=== PATIENT | female | born 1960 | race Caucasian/White ===

== ENCOUNTER 2017-06-10 06:52 | Day surgery (SDC) | payer MEDICARE, OTHER ==
[~2017-06-10] VITALS: Ht 149.9 cm; Wt 79.8 kg
[~2017-06-10 06:52] MED LIST: ASPIRIN EC81 MG PO; CONTOUR NEXT1 EACH MISC; CYCLOBENZAPRINE10 MG PO; DULOXETINE HCL20 MG PO; GABAPENTIN300 MG PO; LANTUS SOL100 UNIT/1 SUB-Q; METFORMIN HCL500 MG PO; NORCO 7.5-3251 EACH PO; OMEPRAZOLE20 MG PO; PROAIR HFA8.5 GM INH
--- NOTE | 2017-06-10 07:34 | NUR ---
PATIENT IS INCONTINENT OF LIQUID STOOL IN BED. LINEN AND GOWN CHANGED. CALL LIGHT W/IN REACH.
--- NOTE | 2017-06-10 09:04 | NUR ---
06/10/17 0904 Bushra Canela 0900 PATIENT ARRIVES TO PACU SLEEPING, AWAKENS WITH REPEATED STIMULI, THEN BACK TO SLEEP. RESP EVEN AND UNLABORED, NC AT 3 LITERS.
--- NOTE | 2017-06-10 10:38 | NUR ---
1005: PATIENT BACK IN DAY SURGERY ROOM FROM PACU. PATIENT DROWSY. AWAKENS TO VOICE, BUT FALLS RIGHT BACK TO SLEEP. VS CHECKED. IV SITE WNL. ICE WATER PLACED AT BEDSIDE. CALL LIGHT WITHIN REACH.
--- NOTE | 2017-06-10 12:18 | NUR ---
SOUP AND SANDWICH ORDERED FROM DIETARY. CALL LIGHT REMAINS W/IN REACH. PT REPORTS BEING COLD. ROSE MARY HARPER ON WARM.
--- NOTE | 2017-06-10 13:04 | NUR ---
1300 CBG 103 WHILE EATING SANDWICH, MEDICAL TRANSPORT CONTACTED PER PT REQUEST.
--- NOTE | 2017-06-10 13:08 | NUR ---
LE 1230: SOUP AND SANDWICH ARRIVED. PT SITTING UP EATING AND DENIES ADD'L NEEDS.
--- NOTE | 2017-06-10 13:25 | NUR ---
I KNOCKED ON PT'S DOOR, LOOKED IN AND I COULD TELL SHE SEEMED IN SOME DISCOMFORT. I ASKED HER IF SHE NEEDED HELP, SHE STATED "I NEED A NURSE. I HAVE TO GO TO THE BATHROOM." SHE LOOKED IN PAIN, I ARRANGED FOR JHONY Hinds TO CARE FOR HER. WILL FOLLOW NEEDED
--- NOTE | 2017-06-10 13:52 | NUR ---
LE 1320: DC INSTRUCTIONS GIVEN AND PATIENT VERBALIZES UNDERSTANDING. PT FINISHES THE SOUP AND SANDWICH AND TOLERATES THAT WELL. PT DRESSES SELF AND TRANSFERS HERSELF TO AND MEDICAL TRANSPORT VEHICLE WELL.
--- NOTE | 2017-06-12 10:17 | OR ---
[facility] [address], [place] [address] Signed DATE OF OPERATION: 06/10/2017 SURGEON: Vivek Fritz MD PREOPERATIVE DIAGNOSES: 1. Personal history of colonic polyps. 2. Diverticulosis. 3. Mother with a history of colon cancer at age 70. 4. Alternating constipation and diarrhea. POSTOPERATIVE DIAGNOSES: 1. Minimal to moderate sigmoid diverticulosis. 2. A 10 mm periappendiceal/cecal polyp. 3. A 5 mm polyp at 55 cm. 4. Minimal to moderate internal hemorrhoids. PROCEDURE: Colonoscopy with snare and hot biopsy. ESTIMATED BLOOD LOSS: None. INDICATIONS: James is a 56-year-old, obese, diabetic female, who underwent her upper and lower endoscopy more than 15 years ago. She had colonic polyps removed and was told she had diverticulosis. They had asked her to follow up every 5 years. However, she fell on hard times and was not able to make those arrangements. These are now better and she had been to her primary care provider. She was then asked to come and see me for followup colonoscopy. She discussed with me her alternating constipation and diarrhea. She also explained that her mother developed colon cancer at age 70. In the office, I gave James a pamphlet on colonoscopy and we looked at that together along with the risks including, but not limited to, gas bloating, crampy abdominal pain, bleeding, perforation, requiring surgery, and missed diagnosis. She also understands the need for IV conscious sedation. She had expressed understanding and wished to proceed. PROCEDURE NOTE: James was taken into our endoscopy suite and placed in the left lateral decubitus position. She was given IV sedation with 8 mg of Versed and 100 mcg of fentanyl. A digital rectal exam was performed and this was unremarkable. The adult colonoscope was then introduced and advanced all the way around into the cecum under direct Electronically Signed By: VIVEK FRITZ MD 06/12/17 1017 PATIENT NAME: JAMES SAMAYOA OPERATIVE REPORT DATE OF : 58 PHYSICIAN: VIVEK FRITZ MD REPORT #: [id number] REPORT IS CONFIDENTIAL AND NOT TO BE RELEASED WITHOUT AUTHORIZATION [facility] [address], [place] [address] Signed visualization of camera without difficulty. Next, the appendiceal orifice was a 10 mm pedunculated polyp. We removed that with the help of our snare and we were able to just suction it through the scope and captured in our canister. The hemostasis was excellent. After this, the scope was slowly withdrawn. She did have some areas of liquid particulate stool matter that I could not irrigate and suction out completely. We found a polyp back at 55 cm and removed with a hot biopsy forceps. She also had some diverticula in the sigmoid colon. They were moderate in size, minimal to moderate in number, and scattered about. In the rectum, the scope had been retroflexed and we could see about half of the anus because of the liquid stool. There appears to be minimal to moderate internal hemorrhoids. After this, the gas was suctioned out and the colonoscope removed. James tolerated the procedure quite well. RECOMMENDATIONS: I will see James back in my office in 7 to 14 days to review her results. Vivek Fritz MD ALB/MODL /[id number] cc: Bobby Littlejohn MD Electronically Signed By: VIVEK FRITZ MD 06/12/17 1017 PATIENT NAME: JAMES SAMAYOA OPERATIVE REPORT DATE OF : 58 PHYSICIAN: VIVEK FRITZ MD REPORT #: [id number] REPORT IS CONFIDENTIAL AND NOT TO BE RELEASED WITHOUT AUTHORIZATION
== END 2017-06-10 13:25 | disposition home or self-care (01) ==
LOC: OPS 06:52 → DS 06:52 → OPS 08:15 → DS 08:15 → OPS 13:25
PROVIDERS: Colon & Rectal Surgery
PROC: 0DBE8ZZ Excision of Large Intestine, Via Natural or Artificial Opening Endoscopic (ICD-10-PCS; 2017-06-10)
PROC: 0DBH8ZZ Excision of Cecum, Via Natural or Artificial Opening Endoscopic (ICD-10-PCS; principal; 2017-06-10 08:15)
DX: D12.0 Benign neoplasm of cecum (principal); D12.6 Benign neoplasm of colon, unspecified; K57.30 Diverticulosis of large intestine without perforation or abscess without bleeding; K64.8 Other hemorrhoids; K59.00 Constipation, unspecified; J44.9 Chronic obstructive pulmonary disease, unspecified; E78.00 Pure hypercholesterolemia, unspecified; M79.7 Fibromyalgia; E11.40 Type 2 diabetes mellitus with diabetic neuropathy, unspecified; Z86.010 Personal history of colon polyps; Z80.0 Family history of malignant neoplasm of digestive organs; Z90.11 Acquired absence of right breast and nipple; Z90.722 Acquired absence of ovaries, bilateral; Z98.890 Other specified postprocedural states; Z88.8 Allergy status to other drugs, medicaments and biological substances
CPT/HCPCS: 88305; 99153; G0500; J2250; J3010; J7120

== ENCOUNTER 2018-06-18 06:10 | Day surgery (SDC) | payer MEDICARE, OTHER ==
[~2018-06-18] VITALS: Ht 149.9 cm; Wt 77.1 kg
[~2018-06-18 06:10] MED LIST changes: +KEFLEX500 MG PO; +ZOFRAN ODT4 MG PO
[2018-06-18] MEDS ORDERED: HYDROCHLOROTHIA25 MG PO (06:40)
[2018-06-18] MEDS ORDERED: LIPITOR10 MG PO (06:40)
[2018-06-18] MEDS ORDERED: METOPROLOL SUCC25 MG PO (06:42)
[2018-06-18] MEDS ORDERED: LISINOPRIL10 MG PO (06:42)
--- NOTE | 2018-06-18 08:28 | NUR ---
06/18/18 0828 Susanne Noyola 0892-PATIENT ARRIVED TO PACU ON 3L NC PLACED ON 2L. PATIENT REACTIVE TO VOICE MOVES HEAD. ABDOMEN SOFT PASSING GAS. LAYING LEFT LATERAL. IVF INFUSING.
--- NOTE | 2018-06-18 09:54 | OR ---
[facility] [address], [place] [address] Signed DATE OF OPERATION: 06/18/2018 SURGEON: Vivek Mcgovern MD PREOPERATIVE DIAGNOSES: 1. Gastroesophageal reflux disease. 2. Nonalcoholic steatohepatitis. 3. Personal history of colonic polyps in May 2017. 4. Diverticulosis. 5. Constipation and diarrhea. 6. Internal hemorrhoids. 7. Mother with a history of colon cancer age 70. POSTOPERATIVE DIAGNOSES: 1. Mild to moderate diffuse punctate hemorrhagic gastritis. 2. Small hiatal hernia. 3. Mild grade 1 distal esophageal varices. 4. 3 mm rectal polyps x2. 5. 7 mm polyp at 18 cm. 6. 4 mm polyp at 32 cm. 7. 4 mm polyp distal hepatic flexure. 8. 4 mm polyp proximal transverse colon. 9. Moderate sigmoid diverticulosis. 10. Minimal internal hemorrhoids. PROCEDURES: 1. EGD with CLOtest and biopsy of the antrum, body, and GE junction. 2. Colonoscopy with hot biopsy. ESTIMATED BLOOD LOSS: None. INDICATIONS: James is a 57-year-old female asked to see me for both upper and lower endoscopy. She has had acid reflux for many years and has been on omeprazole. She is also known to have nonalcoholic steatohepatitis. She says her upper and lower endoscopy was well over 10 years ago. However, last year she came to us in May 2017, for a colonoscopy. She had a villous adenomatous polyp removed with high-grade dysplasia. She also had an adenomatous polyp removed at 55 cm. She was known to have diverticulosis and internal hemorrhoids. In addition, she had some alternating constipation and diarrhea. Her Electronically Signed By: VIVEK MCGOVERN MD 06/18/18 0954 PATIENT NAME: JAMES SAMAYOA OPERATIVE REPORT DATE OF : 58 REPORT #: [id number] PHYSICIAN: VIVEK MCGOVERN MD PCP: BOBBY REILLY MD REPORT IS CONFIDENTIAL AND NOT TO BE RELEASED WITHOUT AUTHORIZATION [facility] [address] [place], [place] [address] Signed mother also was diagnosed with colon cancer age 70. Last year, her prep was not the best, so we have asked her to come back in a short interval for her colonoscopy. On this occasion, we asked her to take a double prep one in the morning and one in the afternoon. Unfortunately, she took half the prep in the morning and after the prep afternoon. Nevertheless, it did pillowcase turner better on this occasion that it did last year. I did gave her pamphlets on both upper and lower endoscopy in the office. She understands upper and lower endoscopy along with the risks including, but not limited to gas, bloating, crampy abdominal pain, bleeding, perforation, requiring surgery, and missed diagnosis. She also understands the need for IV conscious sedation. She has done well with Versed and fentanyl in the past. She expressed understanding and wished to proceed. PROCEDURE IN DETAIL: James was taken into our endoscopy suite and placed in the supine semi-recumbent position. The posterior oropharynx was anesthetized with Hurricaine spray. She was given divided doses of 8 mg of Versed and 150 mcg of fentanyl to cover both the upper and lower endoscopy. A bite block was utilized for the case. The adult gastroscope was introduced and advanced all the way out into the duodenum under direct visualization of camera without difficulty. The duodenum and pyloric channel were unremarkable. The stomach showed mild to moderate diffuse punctate hemorrhagic gastritis. No ulcerations. We went ahead and took a biopsy out of the antrum for CLOtest as well as pathologic review. We took an additional biopsy from the body for pathologic review. Upon retroflexion of scope, she appears to have just a tiny hiatal hernia. We saw no gastric varices. The scope was withdrawn up through the area of GE junction, which was compliant without stricture. She had mild disruption to the Z-line. We went ahead and took a biopsy at the Z-line for pathologic review. As we moved the scope in the distal esophagus in the distal and mid esophagus, we noticed that indeed she does have some grade 1 esophageal varices. We went back to look for a biopsy at the GE junction and it appear to be fine with respect to bleeding. The upper esophagus was unremarkable. There was no inflammatory changes in the esophagus. After this, the gas was suctioned out and the gastroscope removed. James tolerated the procedure quite well. James was then rotated into the left lateral decubitus position. She was maintained on IV sedation with the Versed and fentanyl. A digital rectal exam was performed and this was unremarkable. She has a 15 mm fibrolipomatous skin tag/lesion on the upper posterior left thigh. I am sure it is chronic and been there many years. The adult colonoscope was then introduced and advanced all the way around into the cecum under direct visualization of camera without difficulty. On this occasion, her prep was much better. She had some areas of liquid stool, most of which was suctioned out. We took pictures throughout for photodocumentation. The above-mentioned polyps were easily removed with the help of hot biopsy forceps. Again, she has moderate sigmoid diverticulosis. They are moderate in size, moderate in number, and scattered about. Electronically Signed By: VIVEK MCGOVERN MD 06/18/18 0954 PATIENT NAME: JAMES SAMAYOA OPERATIVE REPORT DATE OF : 58 REPORT #: [id number] PHYSICIAN: VIVEK MCGOVERN MD PCP: BOBBY REILLY MD REPORT IS CONFIDENTIAL AND NOT TO BE RELEASED WITHOUT AUTHORIZATION [facility] [address] [place] [id number] Signed Once in the rectum, the scope had been retroflexed, sure enough, she again has some minimal internal hemorrhoids. After this, the gas was suctioned out and colonoscope removed. James tolerated the procedure quite well. RECOMMENDATIONS: I will see James back in my office in 7 to 14 days to review her results. She should not take any aspirin or NSAIDs for the next week. If she has not had a full liver workup, she can institute this to her primary care provider. However, if she carries a diagnosis of HAYS, I suspect she has already had at least an ultrasound of the liver. Vivek Mcgovern MD ALB/MODL /[id number] cc: MD Bobby Walton MD Copies: VIVEK MCGOVERN MD, MALCOLM MD ~ Electronically Signed By: VIVEK MCGOVERN MD 06/18/18 0954 PATIENT NAME: JAMES SAMAYOA OPERATIVE REPORT DATE OF : 58 REPORT #: [id number] PHYSICIAN: VIVEK MCGOVERN MD PCP: BOBBY REILLY MD REPORT IS CONFIDENTIAL AND NOT TO BE RELEASED WITHOUT AUTHORIZATION
--- NOTE | 2018-06-18 10:29 | NUR ---
PT ARRIVES TO DS RM 5 FROM PACU. PT AWAKE ON ARRIVAL WITH VERBAL STIMULATION, BUT QUICKLY FALLS ASLEEP. PT ON 2L O2 VIA NC, SATS 97% WITH EVEN, UNLABORED RESP. PT TOLERATES SIPS OF WATER AND REQUESTS PUDDING. PT PROVIDED PUDDING, BUT FALLS ASLEEP WHILE EATING. CONT PULSE OXIMETER LEFT IN PLACE, PT SATS 96% WHILE SLEEPING. PT AWAKES WITH VERBAL STIMULATION AND TV IS TURNED ON TO "STAY AWAKE."
--- NOTE | 2018-06-18 10:51 | NUR ---
PT SLEEPING WITH HOB AT 30 DEGREES. RESP EVEN AND UNLABORED ON 2L O2 VIA NC, SATS 97%. PT EASILY AROUSED BY VERBAL STIMULATION. PT PROVIDED CELL PHONE FOR STIMULATION, BUT QUICKLY FALLS BACK ASLEEP. CALL LIGHT IN PT LEFT HAND.
--- NOTE | 2018-06-18 11:17 | NUR ---
PT CONT TO REST WITH HOB AT 30 DEGREES. PT SLEEPING ON ENTRANCE AND IS AROUSED WITH VERBAL STIMULATION. PT ABLE TO DENY ANY PAIN OR NAUSEA WHEN PROMPTED, BUT QUICKLY FALLS BACK ASLEEP. PT RESP EVEN AND UNLABORED, SATS 98% ON 2L O2 VIA NC. PT PASSING FLATUS. CALL LIGHT IN LAP.
--- NOTE | 2018-06-18 12:25 | NUR ---
PT CONT TO BE DROWSY. PT AROUSED BY VERBAL STIMULATION. PT RESP EVEN AND UNLABORED, SATS ABOVE 94% ON RA. PT DENIES ANY PAIN OR NAUSEA. PT REPOSITIONED TO SITTING AT EDGE OF BED, PT DENIES ANY NAUSEA OR DIZZINESS. PT SLOWLY STANDS AND IS ABLE TO AMBULATE TO BATHROOM WITH RN ASSIST. PT GAIT STEADY.
--- NOTE | 2018-06-18 13:33 | NUR ---
[id number]: PT ABLE TO VOID 825MLS YELLOW URINE WITH NO PROBLEM. PT BACK IN RM, DRESSES SELF. DC INSTRUCTIONS PRESENTED TO PT, NO QUESTIONS ASKED. TAXI CALLED FOR PT FOR RIDE HOME. THIS RN AND PT WAIT IN HOSPITAL LOBBY UNTIL 1330 WAITING ON TAXI.
== END 2018-06-18 12:50 | disposition home or self-care (01) ==
LOC: DS 06:10
PROVIDERS: Colon & Rectal Surgery
PROC: 0DBP8ZZ Excision of Rectum, Via Natural or Artificial Opening Endoscopic (ICD-10-PCS; 2018-06-18)
PROC: 0DB48ZX Excision of Esophagogastric Junction, Via Natural or Artificial Opening Endoscopic, Diagnostic (ICD-10-PCS; 2018-06-18)
PROC: 0DB78ZX Excision of Stomach, Pylorus, Via Natural or Artificial Opening Endoscopic, Diagnostic (ICD-10-PCS; 2018-06-18)
PROC: 0DB68ZX Excision of Stomach, Via Natural or Artificial Opening Endoscopic, Diagnostic (ICD-10-PCS; 2018-06-18)
PROC: 0DBL8ZZ Excision of Transverse Colon, Via Natural or Artificial Opening Endoscopic (ICD-10-PCS; principal; 2018-06-18 06:45)
PROC: 0DBE8ZZ Excision of Large Intestine, Via Natural or Artificial Opening Endoscopic (ICD-10-PCS; 2018-06-18 06:45)
DX: K63.5 Polyp of colon (principal); K62.1 Rectal polyp; K57.30 Diverticulosis of large intestine without perforation or abscess without bleeding; K64.8 Other hemorrhoids; K29.71 Gastritis, unspecified, with bleeding; K21.0 Gastro-esophageal reflux disease with esophagitis; K44.9 Diaphragmatic hernia without obstruction or gangrene; K75.81 Nonalcoholic steatohepatitis (NASH); I85.00 Esophageal varices without bleeding; K29.51 Unspecified chronic gastritis with bleeding; I10 Essential (primary) hypertension; J44.9 Chronic obstructive pulmonary disease, unspecified; K21.9 Gastro-esophageal reflux disease without esophagitis; E78.00 Pure hypercholesterolemia, unspecified; E66.9 Obesity, unspecified; M81.0 Age-related osteoporosis without current pathological fracture; Z98.890 Other specified postprocedural states; Z86.010 Personal history of colon polyps; Z80.0 Family history of malignant neoplasm of digestive organs; Z88.1 Allergy status to other antibiotic agents; Z88.8 Allergy status to other drugs, medicaments and biological substances; Z79.84 Long term (current) use of oral hypoglycemic drugs; Z79.899 Other long term (current) drug therapy; Z68.34 Body mass index [BMI] 34.0-34.9, adult
CPT/HCPCS: 86677; 99153; G0500; J2250; J2310; J3010; J7120

== ENCOUNTER 2018-11-14 15:07 | Emergency (ER) | payer MEDICARE, OTHER ==
[~2018-11-14] VITALS: Ht 149.9 cm; Wt 75.3 kg
[~2018-11-14 15:07] MED LIST changes: +HYDROCHLOROTHIA25 MG PO; +LIPITOR10 MG PO; +LISINOPRIL10 MG PO; +METOPROLOL SUCC25 MG PO
== END 2018-11-14 17:39 | disposition home or self-care (01) ==
LOC: ED 15:07
PROC: 0HQ0XZZ Repair Scalp Skin, External Approach (ICD-10-PCS; principal; 2018-11-14)
DX: S01.01XA Laceration without foreign body of scalp, initial encounter (principal); D32.9 Benign neoplasm of meninges, unspecified; I10 Essential (primary) hypertension; E11.36 Type 2 diabetes mellitus with diabetic cataract; Z90.710 Acquired absence of both cervix and uterus; Z85.3 Personal history of malignant neoplasm of breast; Z88.2 Allergy status to sulfonamides; Z88.6 Allergy status to analgesic agent; Z88.8 Allergy status to other drugs, medicaments and biological substances; Z79.899 Other long term (current) drug therapy; Z79.4 Long term (current) use of insulin; W01.198A Fall on same level from slipping, tripping and stumbling with subsequent striking against other object, initial encounter
CPT/HCPCS: 12001; 70450; 99283-25

== ENCOUNTER 2019-01-19 15:29 | Emergency (ER) | payer MEDICARE, OTHER ==
[~2019-01-19] VITALS: Ht 149.9 cm; Wt 78.0 kg
== END 2019-01-19 17:35 | disposition home or self-care (01) ==
LOC: ED 15:29
DX: S20.211A Contusion of right front wall of thorax, initial encounter (principal); E11.9 Type 2 diabetes mellitus without complications; I10 Essential (primary) hypertension; Z85.3 Personal history of malignant neoplasm of breast; Z88.2 Allergy status to sulfonamides; Z88.8 Allergy status to other drugs, medicaments and biological substances; Z88.6 Allergy status to analgesic agent; Z79.4 Long term (current) use of insulin; Z79.899 Other long term (current) drug therapy; X58.XXXA Exposure to other specified factors, initial encounter
CPT/HCPCS: 36415; 71101; 80053; 85025; 99284-25

== ENCOUNTER 2020-07-11 16:10 | Emergency (ER) | payer MEDICARE, OTHER ==
[~2020-07-11] VITALS: Ht 149.9 cm; Wt 78.0 kg
[2020-07-11] MEDS ORDERED: METOPROLOL SUCC25 MG PO (17:19)
[2020-07-11] MEDS ORDERED: PEPCID20 MG PO (17:19)
[2020-07-11] MEDS ORDERED: ATORVASTATIN CA10 MG PO (17:20)
[2020-07-12] MEDS ORDERED: ZOFRAN4 MG PO (16:55)
== END 2020-07-11 21:45 | disposition home or self-care (01) ==
LOC: ED 16:10
DX: K46.9 Unspecified abdominal hernia without obstruction or gangrene (principal); E11.9 Type 2 diabetes mellitus without complications; Z85.3 Personal history of malignant neoplasm of breast; I10 Essential (primary) hypertension; Z87.891 Personal history of nicotine dependence; Z88.8 Allergy status to other drugs, medicaments and biological substances; Z88.2 Allergy status to sulfonamides; Z79.899 Other long term (current) drug therapy; Z79.4 Long term (current) use of insulin
CPT/HCPCS: 74177; 80053; 81001; 83690; 83735; 85025; 96375; 99284-25; J2270; J2405; J7030; Q9967

== ENCOUNTER 2020-07-12 12:03 | Emergency (ER) | payer MEDICARE, OTHER ==
[~2020-07-12] VITALS: Ht 149.9 cm; Wt 78.0 kg
[~2020-07-12 12:03] MED LIST changes: +ATORVASTATIN CA10 MG PO; +PEPCID20 MG PO
--- OUTSIDE RECORDS SUMMARY | 2020-07-12 12:06 | XMS ---
PreManage Notification: JAMES SAMAYOA Security Front Office Help Events No recent Security Events currently on file CRITERIA MET - [facility] - 2 Visits in 30 Days CARE PROVIDERS Godfrey Yuen Machinery Mover/Airplane Mechanic 06/12/2020-Current PHONE: [phone] Félix has no Care Guidelines for this patient. Ke VISIT COUNT (12 MO.) 2 [facility] TOTAL 2 NOTE: Visits indicate total known visits. ED/UCC VISIT TRACKING (12 MO.) 07/12/2020 12:04 [facility] [place] TYPE: Emergency COMPLAINT: - NAUSEA/VOMITING 07/11/2020 16:11 [facility] [place] TYPE: Emergency COMPLAINT: - BACK, ABD AND SIDE PAIN INPATIENT VISIT TRACKING (12 MO.) No inpatient visits to display in this time frame [email or web address]
[2020-07-12] MEDS ORDERED: ZOFRAN4 MG PO (16:55)
== END 2020-07-12 18:57 | disposition home or self-care (01) ==
LOC: ED 12:03
DX: U07.1 COVID-19 (principal); E11.9 Type 2 diabetes mellitus without complications; Z85.3 Personal history of malignant neoplasm of breast; I10 Essential (primary) hypertension; Z88.2 Allergy status to sulfonamides; Z88.8 Allergy status to other drugs, medicaments and biological substances; Z79.899 Other long term (current) drug therapy; Z79.4 Long term (current) use of insulin
CPT/HCPCS: 74018; 80053; 83605; 83690; 85025; 96365; 96366; 96375; 99284-25; C9803; J1885; J2405; J3475; J7030; U0003

== ENCOUNTER 2020-07-14 01:45 | Emergency (ER) | payer MEDICARE, OTHER ==
[~2020-07-14] VITALS: Ht 149.9 cm; Wt 78.0 kg
[~2020-07-14 01:45] MED LIST changes: +ZOFRAN4 MG PO
--- OUTSIDE RECORDS SUMMARY | 2020-07-14 01:48 | XMS ---
PreManage Notification: JAMES SAMAYOA Security Care Coordinator Events No recent Security Events currently on file CRITERIA MET - Group Notification - [facility] - 2 Visits in 30 Days CARE PROVIDERS Godfrey Yuen Ultrasonographer/Asp Developer 06/12/2020-Current PHONE: [phone] GET REILLY Internal Medicine 07/13/2020-Current PHONE: Unknown Félix has no Care Guidelines for this patient. Care History Medical/Surgical 07/13/2020 [facility] - Patient is currently established with [facility]. If patient is seen in the ED during business hours. Please contact CHWs at [facility]. Care Recommendation: If this patient has had 5 or more Emergency Department visits in the last 12 months.\T\nbsp; Patient will require education on the scope and purpose of the ED as an acute care provider not a Primary Care Provider and should not be utilized for chronic conditions.\T\nbsp; These are guidelines and the provider should exercise clinical judgment when providing care. E.D. VISIT COUNT (12 MO.) [address] [facility] TOTAL 3 NOTE: Visits indicate total known visits. ED/UCC VISIT TRACKING (12 MO.) 07/14/2020 01:46 [facility] [place] TYPE: Emergency COMPLAINT: - RT SIDE ABDOMINAL PAIN 07/12/2020 12:04 [facility] [place] TYPE: Emergency COMPLAINT: - NAUSEA/VOMITING [facility]2020 [facility] COMPLAINT: - BACK, ABD AND SIDE PAIN DIAGNOSES: - Lower abdominal pain, unspecified - Personal history of nicotine dependence - Personal history of malignant neoplasm of breast - Other big data admin (current) drug therapy - Allergy status to sulfonamides - Allergy status to other drugs, medicaments and biological substances - label printing machinist (current) use of insulin - Essential (primary) hypertension - Unspecified abdominal hernia without obstruction or gangrene - Type 2 diabetes mellitus without complications INPATIENT VISIT TRACKING (12 MO.) No inpatient visits to display in this time frame [id number]
== END 2020-07-14 02:54 | disposition home or self-care (01) ==
LOC: ED 01:45
DX: G89.29 Other chronic pain (principal); M54.9 Dorsalgia, unspecified; R10.9 Unspecified abdominal pain; U07.1 COVID-19; E11.9 Type 2 diabetes mellitus without complications; Z85.3 Personal history of malignant neoplasm of breast; I10 Essential (primary) hypertension; Z88.2 Allergy status to sulfonamides; Z88.8 Allergy status to other drugs, medicaments and biological substances; Z79.899 Other long term (current) drug therapy; Z79.4 Long term (current) use of insulin
CPT/HCPCS: 99283

== ENCOUNTER 2021-07-20 07:36 | Emergency (ER) | payer MEDICARE, OTHER ==
[~2021-07-20] VITALS: Ht 149.9 cm; Wt 70.8 kg
--- OUTSIDE RECORDS SUMMARY | 2021-07-20 07:44 | XMS ---
PreManage Notification: JAMES SAMAYOA Security Hvac Specialist Events No recent Security Events currently on file CRITERIA MET - Group Notification CARE PROVIDERS Godfrey Yuen Resistor Coater/Operator Prefinish 02/09/2021-Current PHONE: [phone] GET REILLY Internal Medicine 07/13/2020-Current PHONE: Unknown Félix has no Care Guidelines for this patient. Care History Medical/Surgical 07/13/2020 [facility] - Patient is currently established with [facility]. If patient is seen in the ED during business hours. Please contact CHWs at [facility]. Care Recommendation: If this patient has had [...] providing care. E.D. VISIT COUNT (12 MO.) 1 [facility] TOTAL 1 NOTE: Visits indicate total known visits. ED/UCC VISIT TRACKING (12 MO.) 07/20/2021 07:37 [facility] [place] TYPE: Emergency COMPLAINT: - ABD/BACK PAIN INPATIENT VISIT TRACKING (12 MO.) No inpatient visits to display in this time frame [email or web address]
[2021-07-20] MEDS ORDERED: METFORMIN HCL1000 MG PO (08:04)
[2021-07-20] MEDS ORDERED: LIDODERM1 EACH TOP (11:41)
== END 2021-07-20 11:59 | disposition home or self-care (01) ==
LOC: ED 07:36
DX: M54.50 Low back pain, unspecified (principal); K74.60 Unspecified cirrhosis of liver; E11.9 Type 2 diabetes mellitus without complications; Z85.3 Personal history of malignant neoplasm of breast; Z88.2 Allergy status to sulfonamides; Z88.6 Allergy status to analgesic agent; Z88.8 Allergy status to other drugs, medicaments and biological substances; Z79.84 Long term (current) use of oral hypoglycemic drugs; Z79.4 Long term (current) use of insulin; Z79.899 Other long term (current) drug therapy
CPT/HCPCS: 36415; 74177; 80053; 81001; 83690; 85025; 99284-25; A9270; J1170; J7030; Q9967

== ENCOUNTER 2021-09-20 09:34 | Emergency (ER) | payer MEDICARE, OTHER ==
[~2021-09-20] VITALS: Ht 149.9 cm; Wt 69.4 kg
[~2021-09-20 09:34] MED LIST changes: +LIDODERM1 EACH TOP; +METFORMIN HCL1000 MG PO
--- OUTSIDE RECORDS SUMMARY | 2021-09-20 09:42 | XMS ---
PreManage Notification: JAMES SAMAYOA Security Coal Handling Supervisor Events No recent Security Events currently on file CRITERIA MET - [facility] - Has Care Guidelines - Group Notification CARE PROVIDERS Godfrey Yuen Crusher Foreman/General Road Production Manager 02/09/2021-Current PHONE: [phone] GET REILLY Internal Medicine 07/13/2020-Current PHONE: Unknown Félix has no Care Guidelines for this patient. Care History Medical/Surgical 07/22/2021 [facility] - Patient is currently established with [facility]. If patient is seen in the ED during business hours. Please contact CHWs at [facility]. Care Recommendation: If this patient has had [...] providing care. E.D. VISIT COUNT (12 MO.) [address] [facility] TOTAL 2 NOTE: Visits indicate total known visits. ED/UCC VISIT TRACKING (12 MO.) 09/20/2021 09:35 [facility] [place] TYPE: Emergency COMPLAINT: - R FLANK/ABD/LEG PAIN 07/20/2021 07:37 [facility] [place] TYPE: Emergency COMPLAINT: - ABD/BACK PAIN DIAGNOSES: - Allergy status to other drugs, medicaments and biological substances - Low back pain, unspecified - Allergy status to sulfonamides - jail (current) use of insulin - Type 2 diabetes mellitus without complications - Unspecified cirrhosis of liver - jail (current) use of oral hypoglycemic drugs - Personal history of malignant neoplasm of breast - Other fpc (current) drug therapy - Allergy status to analgesic agent - Unspecified abdominal pain - LOW BACK PAIN, UNSPECIFIED INPATIENT VISIT TRACKING (12 MO.) No inpatient visits to display in this time frame [email or web address]
[2021-09-20] MEDS ORDERED: CEPHALEXIN500 M1 PO (12:36)
== END 2021-09-20 13:05 | disposition home or self-care (01) ==
LOC: ED 09:34
DX: N39.0 Urinary tract infection, site not specified (principal); R10.9 Unspecified abdominal pain; E11.9 Type 2 diabetes mellitus without complications; Z85.3 Personal history of malignant neoplasm of breast; Z88.2 Allergy status to sulfonamides; Z88.6 Allergy status to analgesic agent; Z88.8 Allergy status to other drugs, medicaments and biological substances; Z79.899 Other long term (current) drug therapy; Z79.84 Long term (current) use of oral hypoglycemic drugs; Z79.4 Long term (current) use of insulin
CPT/HCPCS: 36415; 74176; 80053; 81001; 85025; 87088; 96365; 99284-25; J0696

== ENCOUNTER 2021-10-18 19:43 | Emergency (ER) | payer MEDICARE, OTHER ==
[~2021-10-18] VITALS: Ht 149.9 cm; Wt 69.4 kg
[~2021-10-18 19:43] MED LIST changes: +CEPHALEXIN500 M1 PO
--- OUTSIDE RECORDS SUMMARY | 2021-10-18 19:50 | XMS ---
PreManage Notification: JAMES SAMAYOA Security Investigation Officer Events No recent Security Events currently on file CRITERIA MET - [facility] - 2 Visits in 30 Days - [facility] - Has Care Guidelines - Group Notification CARE PROVIDERS Godfrey Yuen Ore Puncher/E Commerce Director 02/09/2021-Current PHONE: [phone] GET REILLY Internal Medicine 07/13/2020-Current PHONE: Unknown Félix has no Care Guidelines for this patient. Care History Medical/Surgical 07/22/2021 [facility] - Patient is currently established with [facility]. If patient is seen in the ED during business hours. Please contact CHWs at [facility]. Care Recommendation: If this patient has [...] care. E.D. VISIT COUNT (12 MO.) 3 [facility] TOTAL 3 NOTE: Visits indicate total known visits. ED/UCC VISIT TRACKING (12 MO.) 10/18/2021 19:43 [facility] [place] TYPE: Emergency COMPLAINT: - NECK PAIN 09/20/2021 09:35 [facility] [place] TYPE: Emergency COMPLAINT: - R FLANK/ABD/LEG PAIN DIAGNOSES: - Low back pain, unspecified - Allergy status to other drugs, medicaments and biological substances - Personal history of malignant neoplasm of breast - Allergy status to sulfonamides - Urinary tract infection, site not specified - Other guard captain (current) drug therapy - Type 2 diabetes mellitus without complications - Unspecified abdominal pain - outboard technician (current) use of oral hypoglycemic drugs - outboard technician (current) use of insulin - Allergy status to analgesic agent 07/20/2021 07:37 [facility] [place] TYPE: Emergency COMPLAINT: - ABD/BACK PAIN DIAGNOSES: - Allergy status to other drugs, medicaments and biological substances - Low back pain, unspecified - Allergy status to sulfonamides - group home (current) use of insulin - Type 2 diabetes mellitus without complications - Unspecified cirrhosis of liver - group home (current) use of oral hypoglycemic drugs - Personal history of malignant neoplasm of breast - Other penitentiary (current) drug therapy - Allergy status to analgesic agent - Unspecified abdominal pain - LOW BACK PAIN, UNSPECIFIED INPATIENT VISIT TRACKING (12 MO.) No inpatient visits to display in this time frame [email or web address]
[2021-10-18] MEDS ORDERED: CYCLOBENZAPRINE10 MG PO (21:11)
== END 2021-10-18 21:25 | disposition home or self-care (01) ==
LOC: ED 19:43
DX: M62.838 Other muscle spasm (principal); E11.9 Type 2 diabetes mellitus without complications; Z85.3 Personal history of malignant neoplasm of breast; Z88.2 Allergy status to sulfonamides; Z88.8 Allergy status to other drugs, medicaments and biological substances; Z79.84 Long term (current) use of oral hypoglycemic drugs; Z79.4 Long term (current) use of insulin; Z79.899 Other long term (current) drug therapy
CPT/HCPCS: 36415; 51701; 72125; 80053; 81001; 85025; 85610; 87088; 99284-25; J3360

== ENCOUNTER 2022-08-02 11:39 | Emergency (ER) | payer MEDICARE, OTHER ==
[~2022-08-02] VITALS: Ht 149.9 cm; Wt 69.4 kg
--- OUTSIDE RECORDS SUMMARY | 2022-08-02 11:46 | XMS ---
PreManage Notification: JAMES SAMAYOA [employer] Events 1 event(s) in the past 18 months Most recent security events: Elopement at [facility] 02/02/2022 13:15 - Patient eloped before treatment completed. - Patient with suicidal and/or homicidal ideations eloped. - Patient eloped with IV in place. Details: PATIENT LWBS CRITERIA MET - Group Notification - [facility] - Has Care Guidelines CARE PROVIDERS -Fely- Dentist: Account Director [facility] PHONE: [phone] GET REILLY Internal Medicine 07/13/2020-Current PHONE: Unknown Félix has no Care Guidelines for this patient. Care History Medical/Surgical 07/22/2021 [facility] - Patient is currently established with [facility]. If patient is seen in the ED during business hours. Please contact [facility] at [facility]. Care Recommendation: If this patient has had 5 or more Emergency Department visits in the last 12 months.\T\nbsp; Patient will require education on the scope and purpose of the ED as an acute care provider not a Primary Care Provider and should not be utilized for chronic conditions.\T\nbsp; These are guidelines and the provider should exercise clinical judgment when providing care. EKurtisD. VISIT COUNT (12 MO.) 4 [facility] TOTAL 4 NOTE: Visits indicate total known visits. ED/UCC VISIT TRACKING (12 MO.) 08/02/2022 11:40 [facility] TYPE: Emergency COMPLAINT: - FALL, R RIB PAIN 02/02/2022 13:15 [facility] TYPE: Emergency COMPLAINT: - NECK PAIN 10/18/2021 19:43 [facility] TYPE: Emergency COMPLAINT: - NECK PAIN DIAGNOSES: - Cervicalgia - Other muscle spasm - Allergy status to other drugs, medicaments and biological substances - Other shelter (current) drug therapy - Type 2 diabetes mellitus without complications - Personal history of malignant neoplasm of breast - ferry terminal supervisor (current) use of insulin - ferry terminal supervisor (current) use of oral hypoglycemic drugs - Allergy status to sulfonamides 09/20/2021 09:35 [facility] TYPE: Emergency COMPLAINT: - R FLANK/ABD/LEG PAIN DIAGNOSES: - Allergy status to analgesic agent - Allergy status to other drugs, medicaments and biological substances - [facility] (current) use of oral hypoglycemic drugs - Type 2 diabetes mellitus without complications - Urinary tract infection, site not specified - Personal history of malignant neoplasm of breast - [facility] (current) use of insulin - Low back pain, unspecified - Unspecified abdominal pain - Other shelter (current) drug therapy - Allergy status to sulfonamides INPATIENT VISIT TRACKING (12 MO.) No inpatient visits to display in this time frame [email or web address]
[2022-08-02] MEDS ORDERED: JARDIANCE10 MG PO (14:22)
== END 2022-08-02 17:40 | disposition home or self-care (01) ==
LOC: ED 11:39
DX: S22.31XA Fracture of one rib, right side, initial encounter for closed fracture (principal); W06.XXXA Fall from bed, initial encounter; E11.9 Type 2 diabetes mellitus without complications; Z85.3 Personal history of malignant neoplasm of breast; Z88.2 Allergy status to sulfonamides; Z88.8 Allergy status to other drugs, medicaments and biological substances; Z79.4 Long term (current) use of insulin; Z79.84 Long term (current) use of oral hypoglycemic drugs; Z79.899 Other long term (current) drug therapy
CPT/HCPCS: 36415; 71045; 71260; 73030; 74177; 80053; 81003; 85025; 99284-25; A9270; J2270; J7121; Q9967

== ENCOUNTER 2025-01-08 18:06 | Emergency (ER) | payer MEDICARE, OTHER ==
[~2025-01-08] VITALS: Ht 149.9 cm; Wt 70.0 kg
[~2025-01-08 18:06] MED LIST changes: +JARDIANCE10 MG PO; +TRAMADOL HCL50 MG PO
[2025-01-08] MEDS ORDERED: DOXYCYCLINE HYCLATE 100 MG CAP PO ONE (20:00)
[2025-01-08] MEDS ORDERED: HYDROCODONE/ACETA 5/325 TAB PO ONE (20:00)
[2025-01-08] MEDS ORDERED: OXYCODONE HCL 5 MG TAB PO ONE (20:45)
[2025-01-08] MEDS ORDERED: OXYCODONE/ACETAMINOPHEN 1 TAB HOME.PACK PO ONE ×2 (22:15→22:30)
[2025-01-08] MEDS ORDERED: DOXYCYCLINE HYCLATE 100 MG HOME.PACK PO ONE ×2 (22:15→22:30)
[2025-01-08 22:41] VITALS: BP 164/86
== END 2025-01-08 22:43 | disposition home or self-care (01) ==
LOC: ED 18:06
DX: L02.811 Cutaneous abscess of head [any part, except face] (principal); E11.9 Type 2 diabetes mellitus without complications; Z88.2 Allergy status to sulfonamides; Z88.8 Allergy status to other drugs, medicaments and biological substances
CPT/HCPCS: 10060; 87070; 87075; 87205; 99282-25; A9270